=== PATIENT | female | born 1985 | race American Indian/Alaskan Native ===

== ENCOUNTER 2019-04-20 19:17 | Emergency (ER) | payer OTHER, MEDICAID ==
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
[2019-04-20] MEDS ORDERED: IBUPROFEN PO ONE (20:19)
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
[2019-04-20 22:52] VITALS: BP 108/82
== END 2019-04-20 22:00 | disposition home or self-care (01) ==
LOC: ED 19:17
DX: S16.1XXA Strain of muscle, fascia and tendon at neck level, initial encounter (principal); S39.012A Strain of muscle, fascia and tendon of lower back, initial encounter; Z90.49 Acquired absence of other specified parts of digestive tract; Z79.899 Other long term (current) drug therapy; V89.2XXA Person injured in unspecified motor-vehicle accident, traffic, initial encounter; Y93.89 Activity, other specified; Y92.410 Unspecified street and highway as the place of occurrence of the external cause; Y99.8 Other external cause status
CPT/HCPCS: 99282